=== PATIENT | male | born 1980 | race Caucasian/White ===

== ENCOUNTER 2022-10-21 10:49 | Emergency (ER) | payer BC, SELFPAY ==
[2022-10-21 11:05] VITALS: BP 143/84; PULSE 70; RESP 20; TEMP 36.6; O2SAT 100
[2022-10-21 11:12] VITALS: BP 143/84; PULSE 70; RESP 20; TEMP 36.6; O2SAT 100
--- NOTE | 2022-10-21 11:14 | ED.URI ---
HPI - URI/Sore Throat General Chief Complaint: Upper Respiratory Infection Stated Complaint: Cough History of Present Illness HPI Narrative: Patient presents with COVID symptoms. Patient states he was exposed to COVID-19 through his ex- and his children. Patient denies any fever no shortness of breath no chest pain. Related Data Home Medications Medication Instructions Recorded Confirmed No Home Medications 10/21/22 10/21/22 Allergies Allergy/AdvReac Type Severity Reaction Status Date / Time No Known Allergies Allergy Verified 10/21/22 11:07 Review of Systems Review of Systems: CONSTITUTIONAL: Denies chills, or sweats. Reports fever and generalized body aches EYES: Denies visual changes, redness, or discharge. ENT: Denies otalgia. Reports nasal congestion runny nose and sore throat CARDIOVASCULAR: Denies chest pain, palpitations, or edema. RESPIRATORY: Denies dyspnea. Reports occasional cough GASTROINTESTINAL: Denies abdominal pain, nausea, vomiting, or diarrhea. GENITOURINARY: Denies dysuria or hematuria. SKIN: Denies rash or itching. MUSCULOSKELETAL: Denies back pain, joint pain, or myalgia. Reports generalized body aches NEUROLOGIC: Denies headache, numbness, or weakness. PSYCHIATRIC: Denies anxiety or depression. PMFSH Comments At time of signature, agree with nursing past medical, surgical, social and family history. There is no relevant family history pertinent to the presenting complaint Exam Narrative: The patient is a well-developed, well-nourished in no acute distress. SKIN: Skin is warm and dry without erythema, swelling or exudate. There is good turgor. No tenting. HEAD: Atraumatic. Normocephalic. No temporal or scalp tenderness. EYES: Moist and bright. Sclera and conjunctivae normal. No discharge. PERRLA. Extraocular motions intact. Gross visual acuity intact. EARS: Pinna is normal shape and contour. Clear external auditory canals. TM pearly parker with good cone of light, no erythema or suppuration. Bilateral cerumen noted no gross hearing deficit. NOSE: pink, moist mucosa with good air movement. Clear rhinorrhea without nasal flaring. Septum midline. Mouth: moist mucous membranes. THROAT; mild erythema noted to posterior oropharynx with moderate postnasal drainage. Without exudate or ulceration.. Uvula midline. Normal movement of soft palate. NECK: Supple and nontender with full range of motion without discomfort. No meningeal signs. LUNGS: Equal and bilateral breath sounds without wheezes, rales or rhonchi. CHEST: The chest wall is without retractions or use of accessory muscles. HEART: Has a regular rate and rhythm without murmur, gallops, click or rub. ABDOMEN: Soft, nontender with positive active bowel sounds. No rebound tenderness. EXTREMITIES: Without cyanosis, clubbing or edema. Equal 2+ distal pulses and 2 second capillary refill noted. NEUROLOGIC: alert, active, . The patient moves all extremities with normal muscle strength. Normal muscle tone is noted. Normal coordination is noted. NO focal neurological findings noted. Course Course Level of Care: Express Care Visit Vital Signs Vital signs: Vital Signs Temperature 36.6 C 10/21/22 11:05 Pulse Rate 70 10/21/22 11:05 Respiratory Rate 20 10/21/22 11:05 Blood Pressure 143/84 H 10/21/22 11:05 Pulse Oximetry 100 10/21/22 11:05 Oxygen Delivery Room Air 10/21/22 11:05 Temperature 36.6 C 10/21/22 11:12 Pulse Rate 70 10/21/22 11:12 Respiratory Rate 20 10/21/22 11:12 Blood Pressure 143/84 H 10/21/22 11:12 Pulse Oximetry 100 10/21/22 11:12 Oxygen Delivery Room Air 10/21/22 11:12 At time of signature, agree with nursing past medical, surgical, social and family history. There is no relevant family history pertinent to the presenting complaint Please PRESLEY schedule a followup visit with your personal physician for further evaluation and treatment. Including recheck and discussion of your bl
== END 2022-10-21 11:20 | disposition home or self-care (01) ==
PROVIDERS: Emergency Provider Nurse Practitioner Family; PCP Nurse Practitioner Family
DX: U07.1 COVID-19 (principal)
CPT/HCPCS: 87426; 99211; C9803; G0463